=== PATIENT | male | born 1995 | race African-American/Black ===

== ENCOUNTER 2023-12-29 23:00 | Emergency (ER) | payer MEDICAID ==
[~2023-12-29] VITALS: Ht 188 cm; Wt 86.4 kg
[2023-12-29 23:42] VITALS: BP 112/56; PULSE 82; RESP 16; TEMP 98.5
[2023-12-30] MEDS: ACETAMINOPHEN 500 MG TABLET PO ONE (00:02)
[2023-12-30] MEDS: BACITRACIN 0.9 GM PACKET OINTMENT TP ONE (00:02)
[2023-12-30] MEDS: PERTUSS(ACELL),DIPH,TET/PF 0.5 ML SYRINGE [ADULT] IM. ONE (00:03)
== END 2023-12-30 02:15 | disposition home or self-care (01) ==
LOC: EMS 23:01
DX: S61.411A Laceration without foreign body of right hand, initial encounter (principal); S70.312A Abrasion, left thigh, initial encounter; S70.311A Abrasion, right thigh, initial encounter; V99.XXXA Unspecified transport accident, initial encounter; Y93.89 Activity, other specified; Y92.89 Other specified places as the place of occurrence of the external cause; Y99.8 Other external cause status
CPT/HCPCS: 12001; 90471; 90715; 99283